=== PATIENT | female | born 1995 | race Two or more races ===

== ENCOUNTER 2017-10-01 08:43 | Emergency (ER) | payer SELFPAY ==
[2017-10-01] MEDS ORDERED: Ondansetron 4 MG/2 ML SDV IVPUSH ONE (09:07)
[2017-10-01] MEDS ORDERED: Sodium Chloride 0.9% 1,000 ML IV ONE (09:07)
[2017-10-01] MEDS ORDERED: Dicyclomine 10 MG Cap PO ONE (09:08)
--- NOTE | 2017-10-01 09:08 | EDM.PDOC ---
ED HPI GENERAL MEDICAL PROBLEM - General Chief Complaint: Gastrointestinal Problem Stated Complaint: CRAMPING AT 5WKS Time Seen by Provider: 10/01/17 08:59 - History of Present Illness INITIAL COMMENTS - FREE TEXT/NARRATIVE: HISTORY AND PHYSICAL: History of present illness: The patient is a 22-year-old female who is a 2 para 0010 whose last menstrual period was August 27 and she is a proximally 5 weeks and presents with complaints of some nausea diarrhea 5 or 6 times a day for the last 3 days and lower abdominal cramping associated with the diarrhea. She has had no urinary complaints no vaginal bleeding in the cramping only started when the diarrhea started. She has no ill contacts and no recent exotic travel or new foods. She's had no fevers chills upper respiratory symptoms. She has not started her .. Patient says that with the she has not had many symptoms but with the diarrhea she has had nausea and has had decreased by mouth intake although she has been trying. The patient says her stools have been watery but they're not black or bloody Review of systems: As per history of present illness and below otherwise all systems reviewed and negative. Past medical history: As per history of present illness and as reviewed below otherwise noncontributory. Surgical history: As per history of present illness and as reviewed below otherwise noncontributory. Social history: No reported history of drug or alcohol abuse. Family history: As per history of present illness and as reviewed below otherwise noncontributory. Physical exam: Gen.: Well-developed well-nourished female who is nontoxic and vital signs reviewed by me. HEENT: Atraumatic, normocephalic, pupils reactive, negative for conjunctival pallor or scleral icterus, mucous membranes a little tachycardia, throat clear, neck supple, nontender, trachea midline. Lungs: Clear to auscultation, breath sounds equal bilaterally, chest nontender. Heart: S1S2, regular rate and rhythm no overt murmurs Abdomen: Soft, nondistended, nontender. Negative for masses or hepatosplenomegaly. Negative for costovertebral tenderness. Pelvis: Stable nontender. Genitourinary: Deferred. Rectal: Deferred. Extremities: Atraumatic, negative for cords or calf pain. Neurovascular unremarkable. Neuro: Awake, alert, oriented. Cranial nerves II through XII unremarkable. Cerebellum unremarkable. Motor and sensory unremarkable throughout. Exam nonfocal. Diagnostics: CBC CMP magnesium level UA urine culture if indicated serum quantitative hCG Therapeutics: IV fluids Zofran and Bentyl A she has not had any vomiting or diarrhea while in the ED and says that the Trey has significant family helped her cramping and she continues to have no vaginal bleeding or strict pelvic pain. Advised her on bland diet pushing hydration and need for follow-up and reasons to return to the ED. Impression: Diarrhea, first trimester stable Definitive disposition and diagnosis as appropriate pending reevaluation and review of above. lower abdominal Pain Score (Numeric/FACES): 8 - Related Data Allergies Allergy/AdvReac Type Severity Reaction Status Date / Time No Known Allergies Allergy Verified 10/01/17 09:03 Home Meds: Home Meds . [No Known Home Meds] 10/01/17 [History] ED ROS GENERAL - Review of Systems Review Of Systems: ROS reveals no pertinent complaints other than HPI. ED EXAM, GENERAL - Physical Exam Exam: See Below (See dictation) Course - Vital Signs Last Recorded V/S: Last Vital Signs Temp 36.3 C 10/01/17 09:03 Pulse 74 10/01/17 09:03 Resp 18 10/01/17 09:03 BP 115/77 10/01/17 09:03 Pulse Ox 97 10/01/17 09:03 - Orders/Labs/Meds Orders: Active Orders 24 hr Category Date Time Status Communication Order [RC] STAT Care 10/01/17 09:06 Active Labs: Laboratory Tests 10/01/17 10/01/17 10/01/17 Range/Units 09:27 09:27 09:27 WBC 9.00 (4.0-11.0) K/uL RBC 4.84 (4.30-5.90) M/uL Hgb 13.3 (12.0-16.0) g/dL Hct 39.0 (36.0-46.0) % MCV 80.6 (80.0-98.0) fL MCH 27.5 (27.0-32.0) pg MCHC 34.1 (31.0-37.0) g/dL RDW Std Deviation 39.5 (28.0-62.0) fl RDW Coeff of Omayra 13 (11.0-15.0) % Plt Count 234 (150-400) K/uL MPV 10.20 (7.40-12.00) fL Neut % (Auto) 66.0 (48.0-80.0) % Lymph % (Auto) 24.2 (16.0-40.0) % [place] % (Auto) 8.1 (0.0-15.0) % Eos % (Auto) 1.6 (0.0-7.0) % Baso % (Auto) 0.1 (0.0-1.5) % Neut # (Auto) 5.9 H (1.4-5.7) K/uL Lymph # (Auto) 2.2 (0.6-2.4) K/uL [place] # (Auto) 0.7 (0.0-0.8) K/uL Eos # (Auto) 0.1 (0.0-0.7) K/uL Baso # (Auto) 0.0 (0.0-0.1) K/uL Nucleated RBC % 0.0 /100WBC Nucleated RBCs # 0 K/uL Sodium 137 (136-146) mmol/L Potassium 3.6 (3.5-5.1) mmol/L Chloride 108 (98-110) mmol/L Carbon Dioxide 22 (21-31) mmol/L BUN 10 (6.0-23.0) mg/dL Creatinine 0.6 (0.6-1.5) mg/dL Est Cr Clr Drug Dosing 115.33 mL/min Estimated GFR (MDRD) > 60.0 ml/min Glucose 88 (60-110) mg/dL Calcium 8.8 (8.8-10.8) mg/dL Magnesium 1.5 (1.5-2.3) mEq/L Total Bilirubin 0.7 (0.1-1.5) mg/dL AST 9 (5-40) IU/L ALT 8 (8-54) IU/L Alkaline Phosphatase 51 (40-150) Total Protein 6.4 (6.0-8.0) g/dL Albumin 4.1 (3.5-5.0) g/dL Globulin 2.3 (2.0-3.5) g/dL Albumin/Globulin Ratio 1.8 (1.3-2.8) HCG, Quant 3608.2 mIU/mL Urine Color Urine Appearance Urine pH (5.0-8.0) Ur Specific Clifford (1.001-1.035) Urine Protein (NEGATIVE) mg/dL Urine Glucose (UA) (NEGATIVE) mg/dL Urine Ketones (NEGATIVE) mg/dL Urine Occult Blood (NEGATIVE) Urine Nitrite (NEGATIVE) Urine Bilirubin (NEGATIVE) Urine Urobilinogen (<2.0) EU/dL Ur Leukocyte Esterase (NEGATIVE) Urine RBC (0-2/HPF) Urine WBC (0-5/HPF) Ur Epithelial Cells (NONE-FEW) Urine Bacteria (NEGATIVE) 10/01/17 Range/Units 09:29 WBC (4.0-11.0) K/uL RBC (4.30-5.90) M/uL Hgb (12.0-16.0) g/dL Hct (36.0-46.0) % MCV (80.0-98.0) fL MCH (27.0-32.0) pg MCHC (31.0-37.0) g/dL RDW Std Deviation (28.0-62.0) fl RDW Coeff of Omayra (11.0-15.0) % Plt Count (150-400) K/uL MPV (7.40-12.00) fL Neut % (Auto) (48.0-80.0) % Lymph % (Auto) (16.0-40.0) % [place] % (Auto) (0.0-15.0) % Eos % (Auto) (0.0-7.0) % Baso % (Auto) (0.0-1.5) % Neut # (Auto) (1.4-5.7) K/uL Lymph # (Auto) (0.6-2.4) K/uL [place] # (Auto) (0.0-0.8) K/uL Eos # (Auto) (0.0-0.7) K/uL Baso # (Auto) (0.0-0.1) K/uL Nucleated RBC % /100WBC Nucleated RBCs # K/uL Sodium (136-146) mmol/L Potassium (3.5-5.1) mmol/L Chloride (98-110) mmol/L Carbon Dioxide (21-31) mmol/L BUN (6.0-23.0) mg/dL Creatinine (0.6-1.5) mg/dL Est Cr Clr Drug Dosing mL/min Estimated GFR (MDRD) ml/min Glucose (60-110) mg/dL Calcium (8.8-10.8) mg/dL Magnesium (1.5-2.3) mEq/L Total Bilirubin (0.1-1.5) mg/dL AST (5-40) IU/L ALT (8-54) IU/L Alkaline Phosphatase (40-150) Total Protein (6.0-8.0) g/dL Albumin (3.5-5.0) g/dL Globulin (2.0-3.5) g/dL Albumin/Globulin Ratio (1.3-2.8) HCG, Quant mIU/mL Urine Color YELLOW Urine Appearance CLEAR Urine pH 6.0 (5.0-8.0) Ur Specific Clifford >= 1.030 (1.001-1.035) Urine Protein NEGATIVE (NEGATIVE) mg/dL Urine Glucose (UA) NEGATIVE (NEGATIVE) mg/dL Urine Ketones NEGATIVE (NEGATIVE) mg/dL Urine Occult Blood NEGATIVE (NEGATIVE) Urine Nitrite NEGATIVE (NEGATIVE) Urine Bilirubin NEGATIVE (NEGATIVE) Urine Urobilinogen 0.2 (<2.0) EU/dL Ur Leukocyte Esterase NEGATIVE (NEGATIVE) Urine RBC 0-1 (0-2/HPF) Urine WBC 0-2 (0-5/HPF) Ur Epithelial Cells FEW (NONE-FEW) Urine Bacteria FEW (NEGATIVE) Meds: Medications Discontinued Medications Generic Name Dose Route Start Last Admin Trade Name Freq PRN Reason Stop Dose Admin Dicyclomine HCl 10 mg 10/01/17 09:08 10/01/17 09:31 Bentyl PO 10/01/17 09:09 10 mg ONETIME ONE Administration Sodium Chloride 1,000 mls @ 999 mls/hr 10/01/17 09:07 10/01/17 09:27 Normal Saline IV 10/01/17 10:07 999 mls/hr STAT ONE Administration Ondansetron HCl 4 mg 10/01/17 09:07 10/01/17 09:31 Zofran IVPUSH 10/01/17 09:08 4 mg ONETIME ONE Administration Departure - Departure Time of Disposition: 10:40 Disposition: Home, Self-Care 01 Condition: Good Clinical Impression: Diarrhea, First trimester - Discharge Information Referrals: PCP,None [Primary Care Provider] - Forms: ED Department Discharge Additional Instructions: The following information is given to patients seen in the emergency department who are being discharged to home. This information is to outline your options for follow-up care. We provide all patients seen in our emergency department with a follow-up referral. The need for follow-up, as well as the timing and circumstances, are variable depending upon the specifics of your emergency department visit. If you don't have a primary care physician on staff, we will provide you with a referral. We always advise you to contact your personal physician following an emergency department visit to inform them of the circumstance of the visit and for follow-up with them and/or the need for any referrals to a consulting specialist. The emergency department will also refer you to a specialist when appropriate. This referral assures that you have the opportunity for followup care with a specialist. All of these measure are taken in an effort to provide you with optimal care, which includes your followup. Under all circumstances we always encourage you to contact your private physician who remains a resource for coordinating your care. When calling for followup care, please make the office aware that this follow-up is from your recent emergency room visit. If for any reason you are refused follow-up, please contact the [facility] emergency department at and ask to speak to the emergency department charge nurse. [facility] Primary care-Women's Health [address] [place] [id number] [facility] Primary care- Internal Medicine and [facility] [address] [place] [id number] Please push hydration such as Gatorade juice and water as we discussed and eat a bland diet also as we discussed. Rest as much as possible and please connect with one of our providers in the clinic for reevaluation and further care of your diarrhea as well as to start care. ER as needed and as discussed - My Orders Last 24 Hours: My Active Orders 10/01/17 09:06 Communication Order [RC] STAT - Assessment/Plan Last 24 Hours: My Active Orders 10/01/17 09:06 Communication Order [RC] STAT
[2017-10-01 10:03] LABS: CHLORIDE,CL 108 mmol/L (98-110); SODIUM,NA 137 mmol/L (136-146)
== END 2017-10-01 10:56 | disposition home or self-care (01) ==
LOC: MW.ED 08:43
DX: O99.89 Other specified diseases and conditions complicating pregnancy, childbirth and the puerperium (principal); R19.7 Diarrhea, unspecified; Z3A.01 Less than 8 weeks gestation of pregnancy
CPT/HCPCS: 36415; 80053; 81001; 83735; 84702; 85025; 96361; 96374; 99284; A9270; J2405; J7040

== ENCOUNTER 2019-11-29 06:11 | Inpatient (IN) | payer MEDICAID ==
[~2019-11-29 06:11] MED LIST: Sodium Chloride 0.9% 10 ML SDV IV PRN; Sodium Chloride 0.9% 10 ML Syringe FLUSH PRN; Sodium Chloride 0.9% 2.5 ML Syringe FLUSH PRN; ceFAZolin 2 GM in Premix Bag 1 BAG IV ONE
[2019-11-29] MEDS: Lactated Ringers 1,000 ML IV SCH ×2 (07:13→17:46)
[2019-11-29] MEDS ORDERED: Ondansetron 4 MG/2 ML SDV ONE (07:18)
[2019-11-29] MEDS ORDERED: Propofol 200 MG/20 ML SDV ONE (07:19)
[2019-11-29] MEDS ORDERED: Midazolam 1 MG/ML 2 ML SDV ONE (07:19)
[2019-11-29] MEDS ORDERED: Ketorolac 30 MG/ML SDV ONE (07:19)
[2019-11-29] MEDS ORDERED: fentaNYL 100 MCG/2 ML SDV ONE ×2 (07:19→09:36)
[2019-11-29] MEDS ORDERED: Glycopyrrolate 0.2 MG/ML SDV ONE (07:19)
[2019-11-29] MEDS ORDERED: Rocuronium 100 MG/10 ML Syringe ONE (07:19)
[2019-11-29] MEDS ORDERED: Dexamethasone 4 MG/ML 5 ML MDV ONE (07:20)
[2019-11-29] MEDS ORDERED: Bupivacaine 0.5% 30 ML SDV ONE ×2 (07:27→10:05)
--- NOTE | 2019-11-29 07:29 | PCM.PREANE ---
Preanesthetic Assessment - Anesthesia/Transfusion/Family Hx Anesthesia History: Prior Anesthesia Without Reaction Family History of Anesthesia Reaction: No Transfusion History: No Prior Transfusion(s) - Review of Systems General: No Symptoms Pulmonary: No Symptoms Cardiovascular: No Symptoms Gastrointestinal: No Symptoms Neurological: No Symptoms Other: Reports: None - Physical Assessment Vital Signs: Last Vital Signs Temp 97.2 F 11/29/19 07:13 Pulse 56 L 11/29/19 07:13 Resp 16 11/29/19 07:13 BP 102/58 L 11/29/19 07:13 Pulse Ox 97 11/29/19 07:13 Height: 5 ft 2 in Weight: 79.379 kg ASA Class: 1 Mental Status: Alert & Oriented x3 Airway Class: Mallampati = 2 Dentition: Reports: Normal Dentition ROM/Head Extension: Full Lungs: Clear to Auscultation, Normal Respiratory Effort Cardiovascular: Regular Rate, Regular Rhythm - Lab Values: Laboratory Last Values Urine HCG, Qual NEGATIVE (NEGATIVE) 11/29/19 06:40 - Allergies Allergies/Adverse Reactions: Allergies Allergy/AdvReac Type Severity Reaction Status Date / Time No Known Allergies Allergy Verified 11/29/19 07:12 - Blood Blood Available: No - Anesthesia Plan Pre-Op Medication Ordered: None - Acknowledgements Anesthesia Type Planned: General Anesthesia Pt an Appropriate Candidate for the Planned Anesthesia: Yes Alternatives and Risks of Anesthesia Discussed w Pt/Guardian: Yes Pt/Guardian Understands and Agrees with Anesthesia Plan: Yes Additional Comments: preg test neg PLAN: get PreAnesthesia Questionnaire - Past Health History Medical/Surgical History: Denies Medical/Surgical History HEENT History: Reports: Other (See Below) Other HEENT History: blurred vision, Cardiovascular History: Reports: None Respiratory History: Reports: None Gastrointestinal History: Reports: Cholelithiasis Genitourinary History: Reports: None 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: Musculoskeletal History: Reports: None Neurological History: Reports: None Psychiatric History: Reports: None Endocrine/Metabolic History: Reports: Obesity/BMI 30+ Hematologic History: Reports: None Immunologic History: Reports: None Oncologic (Cancer) History: Reports: None Dermatologic History: Reports: None - Past Surgical History Head Surgeries/Procedures: Reports: None HEENT Surgical History: Reports: None Cardiovascular Surgical History: Reports: None Respiratory Surgical History: Reports: None GI Surgical History: Reports: None Female Surgical History: Reports: Section Endocrine Surgical History: Reports: None Neurological Surgical History: Reports: None Musculoskeletal Surgical History: Reports: None Oncologic Surgical History: Reports: None Dermatological Surgical History: Reports: None - SUBSTANCE USE Smoking Status *Q: Never Smoker Recreational Drug Use History: No - HOME MEDS Home Medications: Home Meds . [No Known Home Meds] 10/01/17 [History] - CURRENT (IN HOUSE) MEDS Current Meds: Current Medications Lactated Ringer's (Ringers, Lactated) 1,000 mls @ 125 mls/hr IV ASDIRECTED ALPHONSE Last Admin: 11/29/19 07:13 Dose: 125 mls/hr Sodium Chloride (Saline Flush) 10 ml FLUSH ASDIRECTED PRN PRN Reason: Keep Vein Open Sodium Chloride (Saline Flush) 2.5 ml FLUSH ASDIRECTED PRN PRN Reason: Keep Vein Open Sodium Chloride (Saline Flush) 10 ml FLUSH ASDIRECTED PRN PRN Reason: Keep Vein Open Sodium Chloride (Saline Flush) 2.5 ml FLUSH ASDIRECTED PRN PRN Reason: Keep Vein Open Sodium Chloride (Normal Saline) 10 ml IV ASDIRECTED PRN PRN Reason: IV Use Discontinued Medications Dexamethasone (Dexamethasone) Confirm Administered Dose 20 mg .ROUTE .STK-MED ONE Stop: 11/29/19 07:21 Fentanyl (Sublimaze) Confirm Administered Dose 200 mcg .ROUTE .STK-MED ONE Stop: 11/29/19 07:20 Glycopyrrolate (Robinul) Confirm Administered Dose 0.2 mg .ROUTE .STK-MED ONE Stop: 11/29/19 07:20 Cefazolin Sodium/Dextrose 2 gm (/ Premix) 50 mls @ 100 mls/hr IV ONETIME ONE Stop: 11/29/19 06:29 Ketorolac Tromethamine (Toradol) Confirm Administered Dose 30 mg .ROUTE .STK- MED ONE Stop: 11/29/19 07:20 Midazolam HCl (Versed 1 Mg/Ml) Confirm Administered Dose 2 mg .ROUTE .STK-MED ONE Stop: 11/29/19 07:20 Ondansetron HCl (Zofran) Confirm Administered Dose 4 mg .ROUTE .STK-MED ONE Stop: 11/29/19 07:19 Propofol (Diprivan 20 Ml) Confirm Administered Dose 400 mg .ROUTE .STK-MED ONE Stop: 11/29/19 07:20 Rocuronium [place] (Zemuron) Confirm Administered Dose 100 mg .ROUTE .STK-MED ONE Stop: 11/29/19 07:20
[2019-11-29] MEDS ORDERED: Morphine 10 MG/ML Syringe ONE ×2 (07:31→11:38)
[2019-11-29] MEDS ORDERED: Sugammadex Sodium 200 MG/2 ML VIAL ONE (07:35)
[2019-11-29] MEDS ORDERED: ceFAZolin 1 GM Vial ONE (10:05)
[2019-11-29] MEDS ORDERED: diphenhydrAMINE 50 MG/ML SDV IVPUSH PRN (11:29)
--- NOTE | 2019-11-29 11:36 | PCM.OPNOTE ---
- General Post-Op/Procedure Note Date of Surgery/Procedure: 11/29/19 Operative Procedure(s): Laparoscopic converted to open cholecystectomy Findings: Severe acute cholecystitis with thickened inflammatory rind around the cystic duct making it difficult to ascertain anatomy laparoscopically. Pre Op Diagnosis: Acute cholecystitis Post-Op Diagnosis: same Anesthesia Technique: General ET Tube Primary Surgeon: Mary Anne Hernandez Fluid Replacement, Intraop: 1,900 Output, Urine Amount: 300 EBL in mLs: 300 Surgical Drain/Tube Type: Alejandro Drain Condition: Good
[2019-11-29] MEDS: Morphine 10 MG/ML Syringe IVPUSH ONE ×2 (11:41→11:52)
[2019-11-29] MEDS: HYDROmorphone 2 MG/ML Syringe IVPUSH PRN ×2 (12:01→21:25)
[2019-11-29] MEDS ORDERED: Fluorescein 5 ML Vial ONE (12:47)
--- NOTE | 2019-11-29 13:04 | OR ---
SURGEON: MARY ANNE CALVILLO MD DATE OF PROCEDURE: 11/29/2019 PREOPERATIVE DIAGNOSIS: Acute cholecystitis. POSTOPERATIVE DIAGNOSIS: Acute cholecystitis. PROCEDURE PERFORMED: Laparoscopic, converted to open, cholecystectomy. PRIMARY SURGEON: Mary Anne Calvillo MD. SECONDARY SURGEON: Alec Figueroa MD. STRUCTURAL DESIGN ENGINEER: sales assistant: Dr. Xavi Egan, resident hall director. FLUIDS: 1900 mL of crystalloid. ESTIMATED BLOOD LOSS: 300 mL. URINE OUTPUT: 300 mL. FINDINGS: Severely inflamed gallbladder. No evidence of necrosis. Dense inflammatory rind around the proximal half of the gallbladder making dissection difficult laparoscopically. COMPLICATIONS: None. INDICATIONS: The patient is a 24-year-old female who presented to the emergency room last week with severe right upper quadrant pain. Workup revealed a mildly thickened gallbladder wall with a leukocytosis. She was diagnosed with symptomatic cholelithiasis and sent to my office. On arrival to my office, the patient was still in pain and was tender in the right upper quadrant. I explained that she likely had acute cholecystitis and that she would need urgent surgery. I explained the need for cholecystectomy. I explained the procedure; expected perioperative course; and risks including bleeding, infection, or damage to surrounding structures. She verbalized understanding and wishes to proceed. I explained that should I be unable to perform it laparoscopically, I would convert to open. Again, the patient verbalized understanding. PROCEDURE IN DETAIL: The patient was brought into the OR and placed on the OR table in supine position. A time-out was completed verifying the patient's name, age, date of , allergies, and procedure to be performed. General endotracheal anesthesia was induced. The abdomen was prepped and draped in usual standard fashion. A Burroughs catheter was placed and the left arm was tucked to the patient's side. I anesthetized the infraumbilical fold with 0.5% Marcaine plain. An 11 blade was used to make an incision along the infraumbilical fold. Cautery was used to dissect down to the level of the subcutaneous fat. I then bluntly dissected down to the level of the fascia. The fascia was elevated with Jesus's and incised sharply with Salomon scissors. While doing this, the peritoneum was opened as well. Entry into the abdomen was palpated digitally. A 12 mm Susanna trocar was placed in the abdomen and the abdomen was insufflated. A 5 mm 30 degree scope was inserted and I inspected the area under my incision site. There was no damage to surrounding structures. The patient was placed into reverse Trendelenburg position and airplaned slightly to the left. I turned my attention to the right upper quadrant. The gallbladder was noted to be encased in omentum and appeared distended and inflamed. 5 mm trocars were placed in the following locations under direct visualization; one in the epigastric area, one in the right flank, and one 2 fingerbreadths below the right subcostal margin in the midclavicular line. The gallbladder was too distended and tense to grasp with an atraumatic grasper and so I drained the gallbladder using a laparoscopic aspirating needle. 80 mL of cloudy light green bile was aspirated. The needle was removed, and after this, I was able to grasp the gallbladder and elevate it cranially. The patient had a large amount of omental adhesions along the body of the gallbladder wall. These were taken down with suction as well as hook cautery. The patient had stones in the infundibulum. There was an inflammatory rind around the infundibulum. Using a [place] dissector, endoscopic Kittners, and hook cautery, I attempted to take down this inflammatory rind. I was able to dissect out my cystic artery, but I had difficulty dissecting along the cystic duct. I could see the gallbladder coming down, but could not identify my cystic duct clearly. I attempted to take down the cystic plate to allow for better mobilization and visualization of the cystic duct. However, given the degree of inflammation, I got into bleeding between the gallbladder and liver bed. I attempted to control this with Surgicel and was able to get some hemostasis. I continued my blunt dissection, but continued to have more bleeding and still could not see my cystic duct. At one point, I visualized what appeared to be the common bile duct coming into a short cystic duct, but I could not be sure about this. Given the degree of difficulty I was having, the decision was made to proceed with an open cholecystectomy to allow for better visualization, hemostatic control, and more precise dissection. I closed the infraumbilical port site fascia with interrupted 0 Vicryl sutures. I closed the subcutaneous fat layer with an interrupted 3-0 Vicryl suture. The skin was then closed with a running 4-0 Monocryl stitch. I removed my 5 mm trocars. A right upper quadrant oblique incision was made 2 fingerbreadths below the right subcostal margin using a 15 blade. Cautery was used to dissect through the layers of the abdominal wall. I elevated the posterior rectus sheath and peritoneum with hemostats and entered sharply with the Metzenbaum scissors. I extended my incision both medially and laterally. Dr. Alec Figueroa was asked to come assist in the case. Retractors and moistened sponges were used to expose my operative field. Once I was open, I could better identify my anatomy. There was a thickened and inflamed rind around the infundibulum, and we began dissection using a right angle and a Kittner along this area. We were able to push down some of the thickened rind, but still could not identify her anatomy adequately. We began our dissection then in a dome down fashion. Metzenbaum scissors were used to create a plane between the gallbladder and the liver bed itself. This was taken down further using electrocautery. We were then able to create a plane between the gallbladder and the liver bed. We dissected then more proximally. There were several areas of thickened tissue that were taken down with cautery. This then allowed us to suspend the gallbladder on the cystic duct. We doubly clipped and ligated the cystic artery. Then, using a Kittner and a right angle, we were able to take down the last remaining adhesions along the gallbladder and the cystic duct. We were then clearly able to see the cystic duct. This was doubly tied with 2-0 Vicryl suture and ligated above the suture. The gallbladder was then passed off the field. It measured 10.5 cm in length. We then irrigated the abdomen with normal saline mixed with Ancef. Direct pressure was then applied to the gallbladder fossa. After 2 minutes, we reinspected it and it appeared to be grossly hemostatic with no bile leakage. Surgicel and Avitene were then placed in the gallbladder fossa. A 19-Greek Alejandro drain was brought out through the right flank port site and laid underneath the gallbladder bed. Once we had ensured that there the area was hemostatic, we then began closing our abdominal wall. The posterior rectus sheath and peritoneum were closed with a running 0 Vicryl suture. The anterior rectus sheath and the oblique muscles were closed with interrupted 0 Ethibond sutures. An On-Q device was placed over the top of this layer and secured on the skin. The subcutaneous fat layer was closed with a running 2-0 Vicryl suture. [place] were then used to close the skin. Steri-Strips were applied to the infraumbilical incision. The 19-Greek Alejandro drain was secured with a 2-0 silk suture. Sterile dressings were then applied. The patient tolerated the procedure well and was taken to the PACU in stable condition. All counts were complete and correct at the end of the case. ZHANG STRATTON /[id number] JUNIOR
[2019-11-29] MEDS: Cyclobenzaprine 5 MG Tab PO SCH ×2 (14:06→21:25)
[2019-11-29] MEDS: Acetaminophen/HYDROcodone 325-5 MG Tab PO PRN ×2 (14:49→19:07)
[2019-11-30] MEDS: Lactated Ringers 1,000 ML IV SCH ×3 (01:50→19:06)
[2019-11-30] MEDS: Cyclobenzaprine 5 MG Tab PO SCH ×3 (05:28→21:53)
[2019-11-30 06:08] LABS: BLOOD UREA NITROGEN,BUN 8 mg/dL (7.0-18.0); CARBON DIOXIDE,CO2 28.7 mmol/L (21.0-32.0); CHLORIDE,CL 105 mmol/L (98-107); GLUCOSE RANDOM 89 mg/dL (74-106); POTASSIUM,K 3.9 mmol/L (3.5-5.1); SODIUM,NA 141 mmol/L (136-145)
[2019-11-30] MEDS: Acetaminophen/HYDROcodone 325-5 MG Tab PO PRN ×2 (07:39→19:06)
[2019-11-30] MEDS ORDERED: HYDROmorphone 1 MG/ML Syringe IVPUSH PRN (08:45)
--- NOTE | 2019-11-30 08:55 | PCM.SURGPN ---
- General Info Date of Service: 11/30/19 Date of Surgery/Procedure: 11/29/19 POD#: 1 Functional Status: Reports: Other (Patient complaining of pain with movement. No acute events overnight. Drain with only 20ml out. Labs normal. ) - Review of Systems General: Reports: No Symptoms HEENT: Reports: No Symptoms Pulmonary: Reports: No Symptoms Cardiovascular: Reports: No Symptoms Gastrointestinal: Reports: Abdominal Pain (along RUQ incision ) Genitourinary: Reports: No Symptoms Musculoskeletal: Reports: No Symptoms Skin: Reports: No Symptoms Neurological: Reports: No Symptoms - Patient Data Vitals - Most Recent: Last Vital Signs Temp 36.5 C 11/30/19 07:20 Pulse 68 11/30/19 07:20 Resp 16 11/30/19 07:20 BP 99/59 L 11/30/19 07:20 Pulse Ox 96 11/30/19 07:20 Weight - Most Recent: 79.379 kg I&O - Last 24 Hours: Intake & Output 11/29/19 11/30/19 11/30/19 22:59 06:59 14:59 Intake Total 250 600 Output Total 860 1560 Balance -610 -960 Lab Results Last 24 Hrs: Laboratory Results - last 24 hr 11/30/19 11/30/19 Range/Units 05:20 05:20 WBC 11.67 H (4.0-11.0) K/uL RBC 4.83 (4.30-5.90) M/uL Hgb 12.9 (12.0-16.0) g/dL Hct 39.2 (36.0-46.0) % MCV 81.2 (80.0-98.0) fL MCH 26.7 L (27.0-32.0) pg MCHC 32.9 (31.0-37.0) g/dL RDW Std Deviation 38.9 (28.0-62.0) fl RDW Coeff of Omayra 13 (11.0-15.0) % Plt Count 338 (150-400) K/uL MPV 10.30 (7.40-12.00) fL Neut % (Auto) 69.3 (48.0-80.0) % Lymph % (Auto) 19.9 (16.0-40.0) % [place] % (Auto) 10.2 (0.0-15.0) % Eos % (Auto) 0.4 (0.0-7.0) % Baso % (Auto) 0.2 (0.0-1.5) % Neut # (Auto) 8.1 H (1.4-5.7) K/uL Lymph # (Auto) 2.3 (0.6-2.4) K/uL [place] # (Auto) 1.2 H (0.0-0.8) K/uL Eos # (Auto) 0.1 (0.0-0.7) K/uL Baso # (Auto) 0.0 (0.0-0.1) K/uL Nucleated RBC % 0.0 /100WBC Nucleated RBCs # 0 K/uL Sodium 141 (136-145) mmol/L Potassium 3.9 (3.5-5.1) mmol/L Chloride 105 (98-107) mmol/L Carbon Dioxide 28.7 (21.0-32.0) mmol/L BUN 8 (7.0-18.0) mg/dL Creatinine 0.6 (0.6-1.0) mg/dL Est Cr Clr Drug Dosing 113.36 mL/min Estimated GFR (MDRD) > 60.0 ml/min Glucose 89 (74-106) mg/dL Calcium 8.1 L (8.5-10.1) mg/dL Total Bilirubin 0.7 (0.2-1.0) mg/dL AST 18 (15-37) IU/L ALT 40 (14-63) IU/L Alkaline Phosphatase 70 (46-116) U/L Total Protein 5.7 L (6.4-8.2) g/dL Albumin 2.9 L (3.4-5.0) g/dL Globulin 2.8 (2.6-4.0) g/dL Albumin/Globulin Ratio 1.0 (0.9-1.6) Med Orders - Current: Current Medications Hydrocodone Bitart/Acetaminophen ([place] 325-5 Mg) 2 tab PO Q4H PRN PRN Reason: Pain (moderate 4-6) Last Admin: 11/30/19 07:39 Dose: 2 tab Cyclobenzaprine HCl (Flexeril) 5 mg PO TID [facility] Last Admin: 11/30/19 05:28 Dose: 5 mg Diphenhydramine HCl (Benadryl) 25 mg IVPUSH Q4H PRN PRN Reason: Itching Hydromorphone HCl (Dilaudid) 0.5 mg IVPUSH Q1H PRN PRN Reason: Pain (severe 7-10) Lactated Ringer's (Ringers, Lactated) 1,000 mls @ 125 mls/hr IV ASDIRECTED ALPHONSE Last Admin: 11/30/19 01:50 Dose: 125 mls/hr Ketorolac Tromethamine (Toradol) 15 mg IVPUSH Q6H [facility] Stop: 12/05/19 08:45 Sodium Chloride (Saline Flush) 10 ml FLUSH ASDIRECTED PRN PRN Reason: Keep Vein Open Sodium Chloride (Saline Flush) 2.5 ml FLUSH ASDIRECTED PRN PRN Reason: Keep Vein Open Sodium Chloride (Saline Flush) 10 ml FLUSH ASDIRECTED PRN PRN Reason: Keep Vein Open Sodium Chloride (Saline Flush) 2.5 ml FLUSH ASDIRECTED PRN PRN Reason: Keep Vein Open Sodium Chloride (Normal Saline) 10 ml IV ASDIRECTED PRN PRN Reason: IV Use Discontinued Medications Bupivacaine HCl (Marcaine 0.5%) Confirm Administered Dose 30 ml .ROUTE .STK-MED ONE Stop: 11/29/19 07:28 Bupivacaine HCl (Marcaine 0.5%) Confirm Administered Dose 120 ml .ROUTE .STK- MED ONE Stop: 11/29/19 10:06 Cefazolin Sodium (Ancef) Confirm Administered Dose 1 gm .ROUTE .STK-MED ONE Stop: 11/29/19 10:06 Dexamethasone (Dexamethasone) Confirm Administered Dose 20 mg .ROUTE .STK-MED ONE Stop: 11/29/19 07:21 Fentanyl (Sublimaze) Confirm Administered Dose 200 mcg .ROUTE .STK-MED ONE Stop: 11/29/19 07:20 Fentanyl (Sublimaze) Confirm Administered Dose 100 mcg .ROUTE .STK-MED ONE Stop: 11/29/19 09:37 Fluorescein Sodium (Ak-Fluor) Confirm Administered Dose 5 ml .ROUTE .STK-MED ONE Stop: 11/29/19 12:48 Glycopyrrolate (Robinul) Confirm Administered Dose 0.2 mg .ROUTE .STK-MED ONE Stop: 11/29/19 07:20 Hydromorphone HCl (Dilaudid) 0.5 mg IVPUSH Q1H PRN PRN Reason: Pain (severe 7-10) Last Admin: 11/29/19 21:25 Dose: 0.5 mg Cefazolin Sodium/Dextrose 2 gm (/ Premix) 50 mls @ 100 mls/hr IV ONETIME ONE Stop: 11/29/19 06:29 Last Admin: 11/29/19 13:07 Dose: Not Given Acetaminophen (Ofirmev) Confirm Administered Dose 100 mls @ as directed .ROUTE .STK-MED ONE Stop: 11/29/19 07:36 Ketorolac Tromethamine (Toradol) Confirm Administered Dose 30 mg .ROUTE .STK- MED ONE Stop: 11/29/19 07:20 Midazolam HCl (Versed 1 Mg/Ml) Confirm Administered Dose 2 mg .ROUTE .STK-MED ONE Stop: 11/29/19 07:20 Morphine Sulfate (Morphine) Confirm Administered Dose 10 mg .ROUTE .STK-MED ONE Stop: 11/29/19 07:32 Morphine Sulfate (Morphine) 8 mg IVPUSH ONETIME ONE Stop: 11/29/19 09:28 Last Admin: 11/29/19 11:52 Dose: 4 mg Morphine Sulfate (Morphine) Confirm Administered Dose 10 mg .ROUTE .STK-MED ONE Stop: 11/29/19 11:39 Last Admin: 11/29/19 13:07 Dose: Not Given Ondansetron HCl (Zofran) Confirm Administered Dose 4 mg .ROUTE .STK-MED ONE Stop: 11/29/19 07:19 Propofol (Diprivan 20 Ml) Confirm Administered Dose 400 mg .ROUTE .STK-MED ONE Stop: 11/29/19 07:20 Rocuronium Cerulean (Zemuron) Confirm Administered Dose 100 mg .ROUTE .STK-MED ONE Stop: 11/29/19 07:20 Sugammadex Sodium (Bridion) Confirm Administered Dose 200 mg .ROUTE .STK-MED ONE Stop: 11/29/19 07:36 - Exam Wound/Incisions: Dressing Dry and Intact General: Alert, Oriented HEENT: Pupils Equal, Pupils Reactive Lungs: Normal Respiratory Effort Cardiovascular: Regular Rate GI/Abdominal Exam: Soft, Non-Tender, No Distention, No Mass Skin: Warm, Dry, Intact Neurological: No New Focal Deficit Psy/Mental Status: Alert Sepsis Event Note - Evaluation Sepsis Screening Result: No Definite Risk - Focused Exam Vital Signs: Vital Signs Temp Pulse Resp BP Pulse Ox 11/30/19 07:20 36.5 C 68 16 99/59 L 96 11/30/19 04:00 36.8 C 65 17 100/51 L 95 11/30/19 00:15 36.1 C 67 17 101/58 L 95 Date Exam was Performed: 11/30/19 Time Exam was Performed: 08:50 - Problem List & Annotations (1) Acute cholecystitis due to biliary calculus SNOMED Code(s): 15682417394652 Code(s): K80.00 - CALCULUS OF GALLBLADDER W ACUTE CHOLECYST W/O OBSTRUCTION Status: Acute Current Visit: Yes - Problem List Review Problem List Initiated/Reviewed/Updated: Yes - My Orders Last 24 Hours: Active Orders 24 hr Category Date Time Status Patient Status [ADT] Routine ADT 11/29/19 11:30 Active Ambulate [RC] ASDIRECTED Care 11/29/19 11:30 Active Antiembolic Devices [RC] PER UNIT ROUTINE Care 11/29/19 11:34 Active Incentive Spirometry [RT Incentive Spirometry] [RC] Care 11/29/19 11:34 Active Q1HWA Oxygen Therapy [RC] PRN Care 11/29/19 11:30 Active Pulse Oximetry [RC] CONTINUOUS Care 11/29/19 11:30 Active RT Incentive Spirometry [RC] ASDIRECTED Care 11/29/19 11:30 Active Remove Urinary Catheter [Urinary Catheter Removal] [RC] Care 11/30/19 08:24 Active Per Unit Routine Urinary Catheter Assessment [RC] Q4H Care 11/29/19 11:29 Active Vital Signs [RC] Q4H Care 11/29/19 11:30 Active Wound Care [RC] Q8H Care 11/29/19 11:29 Active Clear Liquid Diet [DIET] Diet 11/29/19 Dinner Active Regular Diet [DIET] Diet 11/30/19 Lunch Ordered Acetaminophen/HYDROcodone [[place] 325-5 MG] Med 11/29/19 11:29 Active 2 tab PO Q4H PRN Cyclobenzaprine [Flexeril] Med 11/29/19 14:00 Active 5 mg PO TID HYDROmorphone [Dilaudid] Med 11/30/19 08:45 Active 0.5 mg IVPUSH Q1H PRN Ketorolac [Toradol] Med 11/30/19 08:45 Ordered 15 mg IVPUSH Q6H diphenhydrAMINE [Benadryl] Med 11/29/19 11:29 Active 25 mg IVPUSH Q4H PRN SCD [Sequential Compression Device] [OM.PC] Routine Oth 11/29/19 11:34 Ordered Medication Orders Hydrocodone Bitart/Acetaminophen ([place] 325-5 Mg) 2 tab PO Q4H PRN PRN Reason: Pain (moderate 4-6) Last Admin: 11/30/19 07:39 Dose: 2 tab Admin: 11/29/19 19:07 Dose: 2 tab Admin: 11/29/19 14:49 Dose: 2 tab Cyclobenzaprine HCl (Flexeril) 5 mg PO TID [facility] Last Admin: 11/30/19 05:28 Dose: 5 mg Admin: 11/29/19 21:25 Dose: 5 mg Admin: 11/29/19 14:06 Dose: 5 mg Diphenhydramine HCl (Benadryl) 25 mg IVPUSH Q4H PRN PRN Reason: Itching Hydromorphone HCl (Dilaudid) 0.5 mg IVPUSH Q1H PRN PRN Reason: Pain (severe 7-10) Lactated Ringer's (Ringers, Lactated) 1,000 mls @ 125 mls/hr IV ASDIRECTED [facility] Last Admin: 11/30/19 01:50 Dose: 125 mls/hr Infusion: 11/30/19 01:46 Dose: 125 mls/hr Admin: 11/29/19 17:46 Dose: 125 mls/hr Infusion: 11/29/19 15:13 Dose: 125 mls/hr Admin: 11/29/19 07:13 Dose: 125 mls/hr Ketorolac Tromethamine (Toradol) 15 mg IVPUSH Q6H [facility] Stop: 12/05/19 08:45 Sodium Chloride (Saline Flush) 10 ml FLUSH ASDIRECTED PRN PRN Reason: Keep Vein Open Sodium Chloride (Saline Flush) 2.5 ml FLUSH ASDIRECTED PRN PRN Reason: Keep Vein Open Sodium Chloride (Saline Flush) 10 ml FLUSH ASDIRECTED PRN PRN Reason: Keep Vein Open Sodium Chloride (Saline Flush) 2.5 ml FLUSH ASDIRECTED PRN PRN Reason: Keep Vein Open Sodium Chloride (Normal Saline) 10 ml IV ASDIRECTED PRN PRN Reason: IV Use - Plan Plan (Free Text/Narrative):: Pain: IV dilaudid 0.5mg q 1hr. [place] 2 tab q 4hr prn. Scheduled flexeril and adding scheduled toradol CV/Pulm: VSS. Encourage IS use and OOB activity. GI: regular diet. D/C IVF when taking adequate po Renal: UOP adequate. D/C ugalde ID: No need for antibiotics Heme: Stable. No evidence of bleeding. Px: No need for GI px. SCDs. Lovenox 40mg daily.
[2019-11-30] MEDS: Ketorolac 15 MG/ML SDV IVPUSH SCH ×3 (08:59→21:53)
[2019-11-30] MEDS: Enoxaparin 40 MG/0.4 ML Syringe SUBCUT SCH (09:32)
--- NOTE | 2019-11-30 11:15 | PCM48HPAN ---
Post Anesthesia Note - EVALUATION WITHIN 48HRS OF ANESTHETIC Vital Signs in Normal Range: Yes Patient Participated in Evaluation: Yes Respiratory Function Stable: Yes Airway Patent: Yes Cardiovascular Function Stable: Yes Hydration Status Stable: Yes Pain Control Satisfactory: Yes Nausea and Vomiting Control Satisfactory: Yes Mental Status Recovered: Yes Vital Signs: Last Vital Signs Temp 36.5 C 11/30/19 07:20 Pulse 68 11/30/19 07:20 Resp 16 11/30/19 07:20 BP 99/59 L 11/30/19 07:20 Pulse Ox 96 11/30/19 07:20 - COMMENTS/OBSERVATIONS Free Text/Narrative:: Doing well. Some soreness. Progressing well.
[2019-11-30] MEDS: Polyethylene Glycol 3350 Powder 17 GM Packet PO SCH (21:53)
[2019-12-01] MEDS: Ketorolac 15 MG/ML SDV IVPUSH SCH ×3 (02:36→14:39)
[2019-12-01] MEDS: Lactated Ringers 1,000 ML IV SCH ×2 (02:40→10:29)
[2019-12-01] MEDS: Cyclobenzaprine 5 MG Tab PO SCH ×3 (05:56→21:44)
[2019-12-01] MEDS: Acetaminophen/HYDROcodone 325-5 MG Tab PO PRN ×2 (06:30→23:24)
[2019-12-01] MEDS: Bisacodyl 5 MG Tab PO SCH (08:40)
[2019-12-01] MEDS: Multivitamin Tab PO SCH (08:41)
[2019-12-01] MEDS: Polyethylene Glycol 3350 Powder 17 GM Packet PO SCH (08:44)
[2019-12-01] MEDS: Enoxaparin 40 MG/0.4 ML Syringe SUBCUT SCH (08:54)
[2019-12-01] MEDS ORDERED: Ketorolac 10 MG Tab PO PRN (15:18)
--- NOTE | 2019-12-01 17:12 | PCM.SURGPN ---
- General Info Date of Service: 12/01/19 Date of Surgery/Procedure: 11/29/19 POD#: 2 Functional Status: Reports: Pain Controlled, Tolerating Diet, Ambulating, Urinating - Review of Systems General: Reports: No Symptoms HEENT: Reports: No Symptoms Pulmonary: Reports: No Symptoms Cardiovascular: Reports: No Symptoms Gastrointestinal: Reports: Other (bloated feeling ). Denies: Flatus Genitourinary: Reports: No Symptoms Musculoskeletal: Reports: No Symptoms Skin: Reports: Rash (upper legs ) - Patient Data Vitals - Most Recent: Last Vital Signs Temp 36.3 C 12/01/19 11:54 Pulse 90 12/01/19 11:54 Resp 16 12/01/19 11:54 BP 101/70 12/01/19 11:54 Pulse Ox 96 12/01/19 11:54 Weight - Most Recent: 79.379 kg I&O - Last 24 Hours: Intake & Output 12/01/19 12/01/19 12/01/19 06:59 14:59 22:59 Intake Total 2398 Output Total 720 Balance 1678 Med Orders - Current: Current Medications Hydrocodone Bitart/Acetaminophen ([place] 325-5 Mg) 2 tab PO Q6H PRN PRN Reason: Pain Last Admin: 12/01/19 06:30 Dose: 2 tab Bisacodyl (Dulcolax) 5 mg PO DAILY [facility] Last Admin: 12/01/19 08:40 Dose: 5 mg Cyclobenzaprine HCl (Flexeril) 5 mg PO TID [facility] Last Admin: 12/01/19 14:40 Dose: 5 mg Diphenhydramine HCl (Benadryl) 25 mg IVPUSH Q4H PRN PRN Reason: Itching Enoxaparin Sodium (Lovenox) 40 mg SUBCUT Q24H [facility] Last Admin: 12/01/19 08:54 Dose: 40 mg Ketorolac Tromethamine (Toradol) 10 mg PO Q6H PRN PRN Reason: Abdominal Pain Stop: 12/06/19 15:19 Multivitamins/Minerals/Vitamin C (Tab-A-Aquiles) 1 tab PO DAILY [facility] Last Admin: 12/01/19 08:41 Dose: 1 tab Polyethylene Glycol (Miralax) 17 gm PO DAILY [facility] Last Admin: 12/01/19 08:44 Dose: 17 gm Sodium Chloride (Saline Flush) 10 ml FLUSH ASDIRECTED PRN PRN Reason: Keep Vein Open Sodium Chloride (Saline Flush) 2.5 ml FLUSH ASDIRECTED PRN PRN Reason: Keep Vein Open Sodium Chloride (Saline Flush) 10 ml FLUSH ASDIRECTED PRN PRN Reason: Keep Vein Open Sodium Chloride (Saline Flush) 2.5 ml FLUSH ASDIRECTED PRN PRN Reason: Keep Vein Open Sodium Chloride (Normal Saline) 10 ml IV ASDIRECTED PRN PRN Reason: IV Use Discontinued Medications Hydrocodone Bitart/Acetaminophen ([place] 325-5 Mg) 2 tab PO Q4H PRN PRN Reason: Pain (moderate 4-6) Last Admin: 11/30/19 07:39 Dose: 2 tab Bupivacaine HCl (Marcaine 0.5%) Confirm Administered Dose 30 ml .ROUTE .STK-MED ONE Stop: 11/29/19 07:28 Bupivacaine HCl (Marcaine 0.5%) Confirm Administered Dose 120 ml .ROUTE .STK- MED ONE Stop: 11/29/19 10:06 Cefazolin Sodium (Ancef) Confirm Administered Dose 1 gm .ROUTE .STK-MED ONE Stop: 11/29/19 10:06 Dexamethasone (Dexamethasone) Confirm Administered Dose 20 mg .ROUTE .STK-MED ONE Stop: 11/29/19 07:21 Fentanyl (Sublimaze) Confirm Administered Dose 200 mcg .ROUTE .STK-MED ONE Stop: 11/29/19 07:20 Fentanyl (Sublimaze) Confirm Administered Dose 100 mcg .ROUTE .STK-MED ONE Stop: 11/29/19 09:37 Fluorescein Sodium (Ak-Fluor) Confirm Administered Dose 5 ml .ROUTE .STK-MED ONE Stop: 11/29/19 12:48 Glycopyrrolate (Robinul) Confirm Administered Dose 0.2 mg .ROUTE .STK-MED ONE Stop: 11/29/19 07:20 Hydromorphone HCl (Dilaudid) 0.5 mg IVPUSH Q1H PRN PRN Reason: Pain (severe 7-10) Last Admin: 11/29/19 21:25 Dose: 0.5 mg Hydromorphone HCl (Dilaudid) 0.5 mg IVPUSH Q1H PRN PRN Reason: Pain (severe 7-10) Lactated Ringer's (Ringers, Lactated) 1,000 mls @ 125 mls/hr IV ASDIRECTED [facility] Last Admin: 12/01/19 10:29 Dose: 125 mls/hr Cefazolin Sodium/Dextrose 2 gm (/ Premix) 50 mls @ 100 mls/hr IV ONETIME ONE Stop: 11/29/19 06:29 Last Admin: 11/29/19 13:07 Dose: Not Given Acetaminophen (Ofirmev) Confirm Administered Dose 100 mls @ as directed .ROUTE .STK-MED ONE Stop: 11/29/19 07:36 Ketorolac Tromethamine (Toradol) Confirm Administered Dose 30 mg .ROUTE .STK- MED ONE Stop: 11/29/19 07:20 Ketorolac Tromethamine (Toradol) 15 mg IVPUSH Q6H [facility] Stop: 12/05/19 08:45 Last Admin: 12/01/19 14:39 Dose: 15 mg Midazolam HCl (Versed 1 Mg/Ml) Confirm Administered Dose 2 mg .ROUTE .STK-MED ONE Stop: 11/29/19 07:20 Morphine Sulfate (Morphine) Confirm Administered Dose 10 mg .ROUTE .STK-MED ONE Stop: 11/29/19 07:32 Morphine Sulfate (Morphine) 8 mg IVPUSH ONETIME ONE Stop: 11/29/19 09:28 Last Admin: 11/29/19 11:52 Dose: 4 mg Morphine Sulfate (Morphine) Confirm Administered Dose 10 mg .ROUTE .STK-MED ONE Stop: 11/29/19 11:39 Last Admin: 11/29/19 13:07 Dose: Not Given Ondansetron HCl (Zofran) Confirm Administered Dose 4 mg .ROUTE .STK-MED ONE Stop: 11/29/19 07:19 Propofol (Diprivan 20 Ml) Confirm Administered Dose 400 mg .ROUTE .STK-MED ONE Stop: 11/29/19 07:20 Rocuronium [place] (Zemuron) Confirm Administered Dose 100 mg .ROUTE .STK-MED ONE Stop: 11/29/19 07:20 Sugammadex Sodium (Bridion) Confirm Administered Dose 200 mg .ROUTE .STK-MED ONE Stop: 11/29/19 07:36 - Exam Wound/Incisions: Healing Well, No Drainage, Other (drain with serosanguinous output) General: Alert, Oriented HEENT: Pupils Equal, Pupils Reactive Lungs: Clear to Auscultation, Normal Respiratory Effort Cardiovascular: Regular Rate, Regular Rhythm GI/Abdominal Exam: Soft, Non-Tender, No Mass, Distended (mild) Skin: Warm, Dry, Rash (upper legs where operative prep was) Sepsis Event Note - Evaluation Sepsis Screening Result: No Definite Risk - Focused Exam Vital Signs: Vital Signs Temp Pulse Resp BP Pulse Ox Pulse Ox 12/01/19 11:54 36.3 C 90 16 101/70 96 12/01/19 09:00 96 12/01/19 08:00 36.6 C 83 16 101/63 94 L Date Exam was Performed: 12/01/19 Time Exam was Performed: 17:05 - Problem List & Annotations (1) Acute cholecystitis due to biliary calculus SNOMED Code(s): 54866396808214 Code(s): K80.00 - CALCULUS OF GALLBLADDER W ACUTE CHOLECYST W/O OBSTRUCTION Status: Acute Current Visit: Yes - Problem List Review Problem List Initiated/Reviewed/Updated: Yes - My Orders Last 24 Hours: Active Orders 24 hr Category Date Time Status Acetaminophen/HYDROcodone [[place] 325-5 MG] Med 11/30/19 16:22 Active 2 tab PO Q6H PRN Ketorolac [Toradol] Med 12/01/19 15:18 Active 10 mg PO Q6H PRN Multivitamins [Tab-A-Aquiles] Med 12/01/19 09:00 Active 1 tab PO DAILY bisacodyL [Dulcolax] Med 12/01/19 09:00 Active 5 mg PO DAILY polyethylene glycoL 3350 [MiraLAX] Med 11/30/19 21:00 Active 17 gm PO DAILY Medication Orders Hydrocodone Bitart/Acetaminophen ([place] 325-5 Mg) 2 tab PO Q6H PRN PRN Reason: Pain Last Admin: 12/01/19 06:30 Dose: 2 tab Admin: 11/30/19 19:06 Dose: 2 tab Bisacodyl (Dulcolax) 5 mg PO DAILY [facility] Last Admin: 12/01/19 08:40 Dose: 5 mg Cyclobenzaprine HCl (Flexeril) 5 mg PO TID [facility] Last Admin: 12/01/19 14:40 Dose: 5 mg Admin: 12/01/19 05:56 Dose: 5 mg Admin: 11/30/19 21:53 Dose: 5 mg Admin: 11/30/19 14:01 Dose: 5 mg Admin: 11/30/19 05:28 Dose: 5 mg Admin: 11/29/19 21:25 Dose: 5 mg Admin: 11/29/19 14:06 Dose: 5 mg Diphenhydramine HCl (Benadryl) 25 mg IVPUSH Q4H PRN PRN Reason: Itching Enoxaparin Sodium (Lovenox) 40 mg SUBCUT Q24H [facility] Last Admin: 12/01/19 08:54 Dose: 40 mg Admin: 11/30/19 09:32 Dose: 40 mg Ketorolac Tromethamine (Toradol) 10 mg PO Q6H PRN PRN Reason: Abdominal Pain Stop: 12/06/19 15:19 Multivitamins/Minerals/Vitamin C (Tab-A-Aquiles) 1 tab PO DAILY [facility] Last Admin: 12/01/19 08:41 Dose: 1 tab Polyethylene Glycol (Miralax) 17 gm PO DAILY [facility] Last Admin: 12/01/19 08:44 Dose: 17 gm Admin: 11/30/19 21:53 Dose: 17 gm Sodium Chloride (Saline Flush) 10 ml FLUSH ASDIRECTED PRN PRN Reason: Keep Vein Open Sodium Chloride (Saline Flush) 2.5 ml FLUSH ASDIRECTED PRN PRN Reason: Keep Vein Open Sodium Chloride (Saline Flush) 10 ml FLUSH ASDIRECTED PRN PRN Reason: Keep Vein Open Sodium Chloride (Saline Flush) 2.5 ml FLUSH ASDIRECTED PRN PRN Reason: Keep Vein Open Sodium Chloride (Normal Saline) 10 ml IV ASDIRECTED PRN PRN Reason: IV Use - Plan Plan (Free Text/Narrative):: Patient is doing well. Still no flatus and mildly bloated. No nausea or vomiting. Continue miralax and dulcolax daily. Regular diet as tolerated. Encourged small frequent meals and fluids. Patient ambulating without difficulty and pain well controlled with Toradol and prn [place]. Continue to encourage OOB activity and IS use. Dressings and drains removed today. Keep clean dry dressing over the drain site of right flank. Ok to remove bandaid on midline tomorrow. Ok to shower. Rash on legs is non-pruritic at this time. Will continue to monitor. Ok to rub lotion on area as needed. Prn benadryl. D/C once passing gas and off all IV pain meds. D/C Dilaudid today.
[2019-12-02] MEDS: Cyclobenzaprine 5 MG Tab PO SCH (06:08)
[2019-12-02] MEDS: Multivitamin Tab PO SCH (08:54)
[2019-12-02] MEDS: Enoxaparin 40 MG/0.4 ML Syringe SUBCUT SCH (08:54)
[2019-12-02] MEDS: Polyethylene Glycol 3350 Powder 17 GM Packet PO SCH (08:54)
[2019-12-02] MEDS: Bisacodyl 5 MG Tab PO SCH (08:54)
[2019-12-02] MEDS: Acetaminophen/HYDROcodone 325-5 MG Tab PO PRN (10:11)
--- NOTE | 2019-12-02 12:54 | PCM.DCSUM1 ---
Discharge Summary - Hospital Course Free Text/Narrative:: patient is a 24-year-old female who underwent a scheduled cholecystectomy for acute cholecystitis. She been seen last week in an outside hospital emergency room and was told she has symptomatic cholelithiasis. After review of her labs and ultrasound imaging, I felt that her symptoms were more severe and diagnosed with acute cholecystitis. She was scheduled to undergo a laparoscopic possible open cholecystectomy. The patient was found to have severe inflammation during the case and it was difficult to delineate the anatomy of her cystic duct. She was converted from laparoscopic to an open procedure. After doing this the gallbladder was able to be removed safely. After the procedure the patient was experiencing significant right upper quadrant pain. Toradol was added to her pain medication regiment with excellent control of her symptoms. On postop day one the patient's labs all appeared normal. Her diet was advanced from clears to regular. She is able to relate with the assisted-living nurses. Her vital signs remained stable. Intraoperatively a drain was placed along the gallbladder fossa. This had scant serosanguineous output. On postop day to remove her dressings and the drains. Her incision appeared to be intact with no evidence of infection or breakdown. Postop day 2 she was more mobile and was able to ambulate better. She did feel bloated with decreased appetite. On the evening of postop day 2 she started passing flatus. She was placed on a bowel regiment on postop day and continued that throughout her stay. This morning her pain is under good control she is passing gas, her vital signs are stable, and her clinical exam is within normal limits. She was cleared for discharge. Her end pathology showed severe chronic cholecystitis with moderate acute cholecystitis associated with cholelithiasis. - Discharge Data Discharge Date: 12/02/19 Discharge Disposition: Home, Self-Care 01 Condition: Good - Referral to Home Health Primary Care Physician: PCP None - Discharge Diagnosis/Problem(s) (1) Acute cholecystitis due to biliary calculus SNOMED Code(s): 03762449518626 ICD Code: K80.00 - CALCULUS OF GALLBLADDER W ACUTE CHOLECYST W/O OBSTRUCTION Status: Acute Current Visit: Yes (2) Chronic cholecystitis SNOMED Code(s): 02573392 ICD Code: K81.1 - CHRONIC CHOLECYSTITIS Status: Acute Current Visit: Yes - Patient Summary/Data Operative Procedure(s) Performed: Laparoscopic converted to open cholecystectomy - Patient Instructions Diet: Regular Diet as Tolerated Activity: No Lifting Over 20 Pounds (for six weeks after surgery ), Rest and Relax Today Driving: Do Not Drive (for one week) Showering/Bathing: May Shower, No Tub Bathing/Swimming (for 2 weeks after surgery ) Wound/Incision Care: Keep Operative Site/Wound Site Clean and Dry Notify Provider of: Fever, Increased Pain, Swelling and Redness, Drainage, Nausea and/or Vomiting - Discharge Plan *PRESCRIPTION DRUG MONITORING PROGRAM REVIEWED*: Yes *COPY OF PRESCRIPTION DRUG MONITORING REPORT IN PATIENT MEL: Yes Prescriptions/Med Rec: bisacodyL [Dulcolax] 5 mg PO DAILY #20 tablet Cyclobenzaprine [Flexeril] 5 mg PO TID #21 tablet Ketorolac [Toradol] 10 mg PO Q6H PRN #20 tablet PRN Reason: Abdominal Pain polyethylene glycoL 3350 [MiraLAX] 17 gm PO DAILY 7 Days #17 packet Home Medications: Home Meds Cyclobenzaprine [Flexeril] 5 mg PO TID #21 tablet 12/01/19 [Rx] Ketorolac [Toradol] 10 mg PO Q6H PRN #20 tablet 12/01/19 [Rx] bisacodyL [Dulcolax] 5 mg PO DAILY #20 tablet 12/01/19 [Rx] polyethylene glycoL 3350 [MiraLAX] 17 gm PO DAILY 7 Days #17 packet 12/01/19 [Rx ] Patient Handouts: Cyclobenzaprine tablets, Open Cholecystectomy, Care After, Acetaminophen; Oxycodone tablets, Ketorolac tablets, Docusate capsules, Polyethylene Glycol powder Referrals: Mary Anne Hernandez MD [Physician] - 12/09/19 3:45 pm - Discharge Summary/Plan Comment DC Time >30 min.: No - General Info Date of Service: 12/02/19 Functional Status: Reports: Pain Controlled, Tolerating Diet, Ambulating, Urinating - Review of Systems General: Reports: No Symptoms HEENT: Reports: No Symptoms Pulmonary: Reports: No Symptoms Cardiovascular: Reports: No Symptoms Gastrointestinal: Reports: Flatus Genitourinary: Reports: No Symptoms Musculoskeletal: Reports: No Symptoms Skin: Reports: No Symptoms - Patient Data Vitals - Most Recent: Last Vital Signs Temp 36.4 C 12/02/19 11:51 Pulse 89 12/02/19 11:51 Resp 15 12/02/19 11:51 BP 106/73 12/02/19 11:51 Pulse Ox 96 12/02/19 11:51 Weight - Most Recent: 79.379 kg I&O - Last 24 hours: Intake & Output 12/01/19 12/02/19 12/02/19 22:59 06:59 14:59 Intake Total 800 1000 Output Total 1000 2400 Balance -200 -1400 Med Orders - Current: Current Medications Hydrocodone Bitart/Acetaminophen ([place] 325-5 Mg) 2 tab PO Q6H PRN PRN Reason: Pain Last Admin: 12/02/19 10:11 Dose: 2 tab Bisacodyl (Dulcolax) 5 mg PO DAILY [facility] Last Admin: 12/02/19 08:54 Dose: 5 mg Cyclobenzaprine HCl (Flexeril) 5 mg PO TID [facility] Last Admin: 12/02/19 06:08 Dose: 5 mg Diphenhydramine HCl (Benadryl) 25 mg IVPUSH Q4H PRN PRN Reason: Itching Enoxaparin Sodium (Lovenox) 40 mg SUBCUT Q24H [facility] Last Admin: 12/02/19 08:54 Dose: 40 mg Ketorolac Tromethamine (Toradol) 10 mg PO Q6H PRN PRN Reason: Abdominal Pain Stop: 12/06/19 15:19 Multivitamins/Minerals/Vitamin C (Tab-A-Aquiles) 1 tab PO DAILY [facility] Last Admin: 12/02/19 08:54 Dose: 1 tab Polyethylene Glycol (Miralax) 17 gm PO DAILY [facility] Last Admin: 12/02/19 08:54 Dose: 17 gm Sodium Chloride (Saline Flush) 10 ml FLUSH ASDIRECTED PRN PRN Reason: Keep Vein Open Sodium Chloride (Saline Flush) 2.5 ml FLUSH ASDIRECTED PRN PRN Reason: Keep Vein Open Sodium Chloride (Saline Flush) 10 ml FLUSH ASDIRECTED PRN PRN Reason: Keep Vein Open Sodium Chloride (Saline Flush) 2.5 ml FLUSH ASDIRECTED PRN PRN Reason: Keep Vein Open Sodium Chloride (Normal Saline) 10 ml IV ASDIRECTED PRN PRN Reason: IV Use Discontinued Medications Hydrocodone Bitart/Acetaminophen ([place] 325-5 Mg) 2 tab PO Q4H PRN PRN Reason: Pain (moderate 4-6) Last Admin: 11/30/19 07:39 Dose: 2 tab Bupivacaine HCl (Marcaine 0.5%) Confirm Administered Dose 30 ml .ROUTE .STK-MED ONE Stop: 11/29/19 07:28 Bupivacaine HCl (Marcaine 0.5%) Confirm Administered Dose 120 ml .ROUTE .STK- MED ONE Stop: 11/29/19 10:06 Cefazolin Sodium (Ancef) Confirm Administered Dose 1 gm .ROUTE .STK-MED ONE Stop: 11/29/19 10:06 Dexamethasone (Dexamethasone) Confirm Administered Dose 20 mg .ROUTE .STK-MED ONE Stop: 11/29/19 07:21 Fentanyl (Sublimaze) Confirm Administered Dose 200 mcg .ROUTE .STK-MED ONE Stop: 11/29/19 07:20 Fentanyl (Sublimaze) Confirm Administered Dose 100 mcg .ROUTE .STK-MED ONE Stop: 11/29/19 09:37 Fluorescein Sodium (Ak-Fluor) Confirm Administered Dose 5 ml .ROUTE .STK-MED ONE Stop: 11/29/19 12:48 Glycopyrrolate (Robinul) Confirm Administered Dose 0.2 mg .ROUTE .STK-MED ONE Stop: 11/29/19 07:20 Hydromorphone HCl (Dilaudid) 0.5 mg IVPUSH Q1H PRN PRN Reason: Pain (severe 7-10) Last Admin: 11/29/19 21:25 Dose: 0.5 mg Hydromorphone HCl (Dilaudid) 0.5 mg IVPUSH Q1H PRN PRN Reason: Pain (severe 7-10) Lactated Ringer's (Ringers, Lactated) 1,000 mls @ 125 mls/hr IV ASDIRECTED [facility] Last Admin: 12/01/19 10:29 Dose: 125 mls/hr Cefazolin Sodium/Dextrose 2 gm (/ Premix) 50 mls @ 100 mls/hr IV ONETIME ONE Stop: 11/29/19 06:29 Last Admin: 11/29/19 13:07 Dose: Not Given Acetaminophen (Ofirmev) Confirm Administered Dose 100 mls @ as directed .ROUTE .STK-MED ONE Stop: 11/29/19 07:36 Ketorolac Tromethamine (Toradol) Confirm Administered Dose 30 mg .ROUTE .STK- MED ONE Stop: 11/29/19 07:20 Ketorolac Tromethamine (Toradol) 15 mg IVPUSH Q6H ALPHONSE Stop: 12/05/19 08:45 Last Admin: 12/01/19 14:39 Dose: 15 mg Midazolam HCl (Versed 1 Mg/Ml) Confirm Administered Dose 2 mg .ROUTE .STK-MED ONE Stop: 11/29/19 07:20 Morphine Sulfate (Morphine) Confirm Administered Dose 10 mg .ROUTE .STK-MED ONE Stop: 11/29/19 07:32 Morphine Sulfate (Morphine) 8 mg IVPUSH ONETIME ONE Stop: 11/29/19 09:28 Last Admin: 11/29/19 11:52 Dose: 4 mg Morphine Sulfate (Morphine) Confirm Administered Dose 10 mg .ROUTE .STK-MED ONE Stop: 11/29/19 11:39 Last Admin: 11/29/19 13:07 Dose: Not Given Ondansetron HCl (Zofran) Confirm Administered Dose 4 mg .ROUTE .STK-MED ONE Stop: 11/29/19 07:19 Propofol (Diprivan 20 Ml) Confirm Administered Dose 400 mg .ROUTE .STK-MED ONE Stop: 11/29/19 07:20 Rocuronium [place] (Zemuron) Confirm Administered Dose 100 mg .ROUTE .STK-MED ONE Stop: 11/29/19 07:20 Sugammadex Sodium (Bridion) Confirm Administered Dose 200 mg .ROUTE .STK-MED ONE Stop: 11/29/19 07:36 - Exam General: Reports: Alert, Oriented HEENT: Reports: Pupils Equal, Pupils Reactive Lungs: Reports: Normal Respiratory Effort Cardiovascular: Reports: Regular Rate GI/Abdominal Exam: Soft, Non-Tender, No Distention, No Mass Back Exam: Reports: Normal Inspection Extremities: Normal Inspection Skin: Reports: Warm, Dry, Intact
== END 2019-12-02 12:15 | disposition home or self-care (01) | DRG 416 ==
LOC: MW.SDS 06:11 → MW.MS 11:29
PROVIDERS: ADMIT Surgery; ATTEND Surgery
PROC: 0FT40ZZ Resection of Gallbladder, Open Approach (ICD-10-PCS; principal; 2019-11-29)
PROC: 0FJ44ZZ Inspection of Gallbladder, Percutaneous Endoscopic Approach (ICD-10-PCS; 2019-11-29)
DX: K80.12 Calculus of gallbladder with acute and chronic cholecystitis without obstruction (principal)
CPT/HCPCS: 36415; 80053; 81025; 85025; 88304; A9270-GY; J0131; J0690; J1100; J1170; J1650; J1885; J2250; J2270; J2405; J2704; J3010; J3490; J7120

== ENCOUNTER 2020-06-23 10:49 | Emergency (ER) | payer SELFPAY ==
--- NOTE | 2020-06-23 11:17 | EDM.PDOC ---
ED HPI GENERAL MEDICAL PROBLEM - General Stated Complaint: 5 WKS / REF FROM [facility] Time Seen by Provider: 06/23/20 10:55 Source of Information: Reports: Patient History Limitations: Reports: No Limitations - History of Present Illness INITIAL COMMENTS - FREE TEXT/NARRATIVE: 25 yo F h/o cholecystectomy, A0 GA 5 weeks by LMP presented with her for vaginal bleeding that began at 10 AM yesterday and has increased throughout the day. She also complains of pain to the left lower quadrant that radiates to her back, rated at 8/10. She denies other symptoms or complaints. She believes she is having a miscarriage as she was passing clots with tissue. She had a positive home test on 06/16/20, and another positive on 06/18/2020. Yesterday she was lifting her 40 pound son and felt a tearing pain to her left posterior flank, followed by vaginal bleeding. She took 1 g of Tylenol at 0415 prior to arrival to the [facility] ED at [place]. She was found to be O+ there so no Rhogam was given, her quantitative hCG was 9.1, urine and microscopic reflex were unremarkable, COVID test was negative, she was offered morphine but the patient declined. On the pelvic exam, it was noted that there was dark blood with clots and POC in the vaginal vault and a mildly dilated cervical os, actively passing POC. She was sent here for ultrasound for concerns for ectopic or incomplete miscarriage. ROS: A 10-point review of systems, other than pertinent positives and negatives as stated per HPI, is otherwise negative Past medical history: No additional pertinent history Past Surgical history: No additional pertinent history Social history: No additional pertinent history Family history: No additional pertinent history PHYSICAL EXAM General: AOx4, GCS = 15, No distress HEENT: dry mucous membrane Neck: supple, no meningismus, no Kernig or Brudzinski Cardiac: S1S2 RRR Respiratory: CTAB, no crackles or rales, no wheezing Abdomen: Soft, nontender, no rebound or guarding, nondistended, no pulsatile mass. Back: No tenderness to L-spine, tenderness and swelling to left lumbar paraspinal muscle. Musculoskeletal: NVI distally, no deformity Neuro: No focal deficits. abdom Pain Score (Numeric/FACES): 4 - Related Data Allergies Allergy/AdvReac Type Severity Reaction Status Date / Time No Known Allergies Allergy Verified 06/23/20 11:10 Home Meds: Home Meds . [No Known Home Meds] 06/23/20 [History] Past Medical History - Past Health History Medical/Surgical History: Denies Medical/Surgical History HEENT History: Reports: Other (See Below) Other HEENT History: blurred vision, Cardiovascular History: Reports: None Respiratory History: Reports: None Gastrointestinal History: Reports: Cholelithiasis Genitourinary History: Reports: None [employer] History: Reports: Musculoskeletal History: Reports: None Neurological History: Reports: None Psychiatric History: Reports: None Endocrine/Metabolic History: Reports: Obesity/BMI 30+ Hematologic History: Reports: None Immunologic History: Reports: None Oncologic (Cancer) History: Reports: None Dermatologic History: Reports: None - Past Surgical History Head Surgeries/Procedures: Reports: None HEENT Surgical History: Reports: None Cardiovascular Surgical History: Reports: None Respiratory Surgical History: Reports: None GI Surgical History: Reports: None Female Surgical History: Reports: Section Endocrine Surgical History: Reports: None Neurological Surgical History: Reports: None Musculoskeletal Surgical History: Reports: None Oncologic Surgical History: Reports: None Dermatological Surgical History: Reports: None Social & Family History - Family History Family Medical History: Noncontributory ED ROS GENERAL - Review of Systems Review Of Systems: See Below (see dictation) ED EXAM - Physical Exam Exam: See Below (see dictation) Course - Vital Signs Last Recorded V/S: Last Vital Signs Temp 98.2 F 06/23/20 11:04 Pulse 75 06/23/20 11:04 Resp 16 06/23/20 11:04 BP 123/79 06/23/20 11:04 Pulse Ox 99 06/23/20 11:04 - Re-Assessments/Exams Free Text/Narrative Re-Assessment/Exam: 06/23/20 1244 SHe is currently stable for discharge. I performed a repeat exam and did not appreciate new abnormal findings. Patient exhibits normal vital signs and has a normal gait on road test. I advised the patient to return to the ER for reevaluation if symptoms worsened, including fever, worsening pain, or any other worrisome symptoms. I instructed the patient to follow up with their PCP within 2-3 days. MEDICAL DECISION MAKING: I reviewed the patients past medical records, lab and radiographic findings. I discussed the case with the patient. My differential diagnosis included: Ectopic , incomplete miscarriage, complete miscarriage. Ultrasound did not demonstrate any findings concerning for ectopic , there was no adnexal mass, or significant free fluid. She was O+, no indication for RhoGam. Findings are more consistent with incomplete miscarriage, instructed to continue expectant management, given strict return precautions, including worsening pain, fever, bleeding. Her pain in the left flank is associated with low back strain after lifting her heavy son, she has tenderness to the left lumbar paraspinal muscle and swelling, consistent with strain. Instructed her to take anti-inflammatory medication for her back pain. She has no urinary or fecal incontinence, she exhibited normal gait, I do not suspect need for MRI, I do not suspect epidural abscess, cord compression. Departure - Departure Time of Disposition: 12:46 Disposition: Home, Self-Care 01 Condition: Good Clinical Impression: Incomplete , Musculoskeletal back pain - Discharge Information *PRESCRIPTION DRUG MONITORING PROGRAM REVIEWED*: Not Applicable *COPY OF PRESCRIPTION DRUG MONITORING REPORT IN PATIENT MEL: Not Applicable Instructions: Incomplete Miscarriage, Managing Loss, Back Injury Prevention Referrals: PCP,None [Primary Care Provider] - Forms: ED Department Discharge Additional Instructions: The need for follow-up, as well as the timing and circumstances, are variable depending upon the specifics of your emergency department visit. If you don't have a primary care physician on staff, we will provide you with a referral. We always advise you to contact your personal physician following an emergency department visit to inform them of the circumstance of the visit and for follow-up with them and/or the need for any referrals to a consulting specialist. The emergency department will also refer you to a specialist when appropriate. This referral assures that you have the opportunity for follow-up care with a specialist. All of these measure are taken in an effort to provide you with optimal care, which includes your follow-up. Under all circumstances we always encourage you to contact your private physician who remains a resource for coordinating your care. When calling for follow-up care, please make the office aware that this follow-up is from your recent emergency room visit. If for any reason you are refused follow-up, please contact the [facility] Emergency Department at and asked to speak to the emergency department charge nurse. [employer] [facility] [address] [place] [id number] Sepsis Event Note (ED) - Focused Exam Vital Signs: Vital Signs Temp Pulse Resp BP Pulse Ox 06/23/20 11:04 98.2 F 75 16 123/79 99
--- NOTE | 2020-06-23 11:56 | US ---
First trimester obstetrical ultrasound: Multiple real-time images were obtained transvaginally. Comparison: No previous study for current . Findings: No intrauterine gestational sac is seen. No myometrial abnormality is seen. No adnexal abnormalities are seen. No discrete ovarian abnormalities are appreciated. No free fluid is seen. Impression: 1. No intrauterine gestational sac. If patient has a positive test findings could represent miscarriage, too early to visualize as well as less likely nonvisualized ectopic . 2. Other portions of the study appear unremarkable. Diagnostic code #2 This report was dictated in MDT
== END 2020-06-23 12:52 | disposition home or self-care (01) ==
LOC: MW.ED 10:49
DX: O03.4 Incomplete spontaneous abortion without complication (principal); M54.5 Low back pain; E66.9 Obesity, unspecified; Z98.890 Other specified postprocedural states
CPT/HCPCS: 76817; 76817-26; 99282; 99284-25